=== PATIENT | female | born 1955 | race Caucasian/White ===

== ENCOUNTER 2020-10-13 14:53 | Outpatient (CLI) | payer OTHER, SELFPAY ==
--- NOTE | ~2020-10-13 | MM_ITS ---
EXAMINATION: MM screening ashley BI w kamilah HISTORY: Screening mammogram TECHNIQUE: Craniocaudal and mediolateral oblique 3-D tomosynthesis images were obtained and synthetic 2-D images were generated. CAD analysis was submitted and interpreted. COMPARISON: 06/18/2019, 06/08/2018, 02/15/2017 bilateral digital screening mammogram examinations BREAST PARENCHYMAL COMPOSITION: The breasts are almost entirely fatty. FINDINGS: There is no evidence of suspicious mass, calcification, or architectural distortion to sugg est malignancy in either breast. There has been no suspicious interval change. IMPRESSION: 1. No mammographic evidence of malignancy. 2. Recommend routine screening mammography in one year. BI-RADS Category 1: Negative Reviewed, dictated and finalized at location A. 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
== END 2020-10-13 14:54 | disposition home or self-care (01) ==
LOC: ANHIMG 14:55
PROVIDERS: PCP Family Medicine; Visit Provider Nurse Practitioner Obstetrics & Gynecology
DX: Z12.31 Encounter for screening mammogram for malignant neoplasm of breast (principal)
CPT/HCPCS: 77063; 77067

== ENCOUNTER → 2021-09-24 03:26 | Outpatient (CLI) | payer MEDICARE, SELFPAY ==
[2021-09-24 18:10] LABS: SARS-CoV-2 RNA PCR Negative
== END ==
PROVIDERS: PCP Family Medicine; Visit Provider Family Medicine
DX: R05.9 Cough, unspecified (principal); Z20.822 Contact with and (suspected) exposure to COVID-19
CPT/HCPCS: C9803; U0003; U0005

== ENCOUNTER 2021-11-18 15:47 | Outpatient (CLI) | payer MEDICARE, SELFPAY ==
--- NOTE | ~2021-11-18 | XR_ITS ---
EXAMINATION: XR lumbar spine min 4V EXAM DATE: 11/18/2021 16:14 INDICATION: M79.604 - Pain in right leg/Muscles, No Known Injury TECHNIQUE: Lumber spine frontal, lateral, bilateral oblique projections. Coned down frontal and lat eral L5-S1 lumbar projections for interpretation. There is no prior study for comparison. FINDINGS: No spondylolysis. There is moderate mid and lower lumbar facet arthropathy. Moderate disc d isease L4-5 and L5-S1, mild to moderate at the levels above. There are no acute fractures identified. Sacrum, sacroiliac joints, sacral arcuate lines are intact. The vertebral bodies are aligned in the AP dimension. IMPRESSION: 1. Moderate lumbar spondylosis. 2. No acute findings. Reviewed, dictated and finalized at location A. 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
== END 2021-11-18 15:48 | disposition home or self-care (01) ==
PROVIDERS: PCP Family Medicine; Visit Provider Family Medicine
DX: M79.604 Pain in right leg (principal); K58.9 Irritable bowel syndrome, unspecified; M47.816 Spondylosis without myelopathy or radiculopathy, lumbar region
CPT/HCPCS: 72110

== ENCOUNTER 2022-03-01 11:00 | Outpatient (RCR) | payer MEDICARE, SELFPAY ==
--- NOTE | 2021-12-24 16:57 | PTOPEVAL ---
Thank you for referring Apurva Prado to [facility].? The patient is scheduled to be seen for therapy?2 x/week for 8 weeks. Please review, sign, date and return this plan of care RAGHAV. I agree with and certify that the following plan of care is medically necessary. Referring Physician Date Attending Provider: Ree Wilkins MD Diagnosis right leg pain Onset 11/02 Cause unknown Additional Evaluation Detail She is retired. Hobbies: reading, music, photo books, gardening, local band Subjective Information She does not recall an injury Query Text:As Reported By Patient/ to her right leg. C/o pain of Family the right hip/knee and lower leg. She has increased pain on the left leg due to abnormal walking. Her left leg has been feeling weaker for some time. Denies any numbness or tingling into her leg or back pain. 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 Diagnostic Tests X-Rays For This Problem Yes: Moderate lumbar spondylosis. Pain Assessment Self Report Pain Assessment Right Leg(s) Reported Pain Level 3 Pain Description Aching,Sharp,Shooting Pain Frequency Acute Lowest Pain Intensity 0 Greatest Pain Intensity 9 Pain Aggravating Factors ADL's,Exercise/Activity,Stair Climbing,Walking,Weight Bearing/Standing Lower Extremity Range of Motion General Lower Extremity Range of Motion Reason Not Measured WFL/Left,WFL/Right Lower Extremity Muscle Strength Testing General Lower Extremity Strength Gross Lower Extremity Strength left hip flex: 4/5, ext: 5/5, abd: left knee flex/ext: 5/5 Hip Strength Right Hip Flexion Strength 4- Good - Hip Extension Strength 3 Fair Hip Abduction Strength 3- Fair - Knee Strength Right Knee Flexion Strength 4- Good - Knee Extension Strength 4+ Good + Ankle Strength Bilateral Ankle Dorsiflexion Strength 5 Normal Muscle Length Testing Muscle Length Testing Two-Joint Hip Flexor Shortened Muscles Short (R) Iliopsoas,Short (L) Iliopsoas,Short (R) Rectus Femoris,Short (L) Rectus F
--- NOTE | 2022-01-28 16:58 | PTOPEVAL ---
Physical Therapy Progress Note Thank you for referring Apurva Prado to [facility] [place].? See summary below for detail of Apurva's progress with therapy. She requires additional therapy services to reach her maximal functional level. The patient is scheduled to be seen for therapy?2 x/week for 4 weeks. Please review, sign, date and return this plan of care RAGHAV. I agree with and certify that the following plan of care is medically necessary. Referring Physician Date Attending Provider: Ree Wilkins MD Diagnosis right leg pain Onset 11/02 Cause unknown Additional Evaluation Detail She is retired. Hobbies: reading, music, photo books, gardening, local band Subjective Information Reports her leg feels better Query Text:As Reported By Patient/ since starting therapy. She Family has increased pain with prolonged walking and activities. She cont to have weakness of right LE. She is more aware of her right leg position with standing and walking. She is able to stand for 10 min interval then pain and fatigued. She remains limited on steps and unable to miller reciprocal pattern. Pain Assessment Right Leg(s) Reported Pain Level 1 Lowest Pain Intensity 0 Greatest Pain Intensity 5 Pain Aggravating Factors Exercise/Activity,Walking, Weight Bearing/Standing Lower Extremity Muscle Strength Testing Hip Strength Right Hip Flexion Strength 4 Good Hip Extension Strength 3+ Fair + Hip Abduction Strength 3- Fair - Knee Strength Right Knee Flexion Strength 4 Good Knee Extension Strength 5 Normal Muscle Length Testing Muscle Length Testing Two-Joint Hip Flexor Shortened Muscles Short (R) Iliopsoas,Short (L) Iliopsoas,Short (R) Rectus Femoris,Short (L) Rectus Femoris,Short (R) Ilial Tib Band,Short (L) Ilial Tib Band Piriformis w/Hip Neutral (L) Moderate Tightness,(R) Severe Tightness Right Prone Hip Internal Rotator Length 15 (degrees) Right Prone Hip External Rotator Length 25 (degrees) Right Hamstring Length -15:(90 - 90 Position) Right Prone Knee Flexor Muscle Length ( 90 degrees) Muscle Length Testing Comments pain with hip motions hip flex: 90 dg
--- NOTE | 2022-02-07 11:46 | PCPTNOTE ---
Patient called & cancelled scheduled appointment this date due to having a migraine and being unable to drive.
--- NOTE | 2022-03-01 11:52 | PCPTNOTE ---
Admitting Provider: Attending Provider: Ree Wilkins MD Patient:Apurva Prado Date of :1955 Physical Therapy Discharge Summary Patient has been seen for 18 therapy visits from 12/24/21 to 03/01/22 to address her leg pain. As a result of skilled therapy services she reports improved pain and function, improved LE strength, and improved joint motion. She is able to tolerate increased walking distance and improved technique on steps. She demonstrates indep with her HEP at this time. The goals have been partially met at this time. Thank you for referring this patient to [facility]. Please review, sign, date and return this discharge summary RAGHAV. I have been updated about the patient's current status and I agree with discharge from the above service at this time. Referring Physician Date
== END 2022-03-01 14:09 | disposition home or self-care (01) ==
LOC: ANHPT 11:00
PROVIDERS: PCP Family Medicine; Visit Provider Family Medicine
DX: M79.604 Pain in right leg (principal)
CPT/HCPCS: 97110; 97112; 97140; 97162; 97530

== ENCOUNTER 2022-06-14 16:57 | Outpatient (CLI) | payer MEDICARE, SELFPAY ==
--- NOTE | ~2022-06-14 | MM_ITS ---
EXAMINATION: MM screening ashley BI w kamilah HISTORY: Screening TECHNIQUE: Craniocaudal and mediolateral oblique 3-D tomosynthesis images were obtained and synthetic 2-D images were generated. CAD analysis was submitted and interpreted. COMPARISON: Comparison to multiple prior studies sequentially, with oldest reviewed study dated 08/13. BREAST PARENCHYMAL COMPOSITION: The breasts are almost entirely fatty. FINDINGS: There is no evidence of suspicious mass, calcification, or architectural distortion to sugg est malignancy in either breast. There has been no suspicious interval change. IMPRESSION: 1. No mammographic evidence of malignancy. 2. Recommend routine screening mammography in one year. BI-RADS Category 1: Negative Reviewed, dictated and finalized at location A.
--- NOTE | ~2022-06-14 | DEXA_ITS ---
Bone Density Report Name: PUMA WILSON Age: 67 Sex: Female Ethnicity: White Date of : 1955 Indication: postmenopausal; screening for osteoporosis; height loss; inflammatory bowel disease; hysterectomy; Referring Provider: LEONARDA, ORLANDO Crane Study: Bone densitometry was performed. Exam Date: June 14, 2022 Accession number: [id number] Bone Density: Region BMD T-score Z-score Classification AP Spine(L1-L4) 0.987 -0.5 1.3 Normal Femoral Neck (Left) 0.627 -2.0 -0.4 Osteopenia Total Hip (Left) 0.801 -1.2 0.1 Osteopenia Femoral Neck (Right) 0.753 -0.9 0.7 Normal Total Hip (Right) 0.851 -0.7 0.5 Normal Total Hip Mean 0.826 -1.0 0.3 Normal World Health Organization criteria for BMD impression classify patients as: Normal (T-score at or above -1.0), Osteopenia (T-score between -1.0 and -2.5), or Osteoporosis (T-score at or below -2.5). 10-year Fracture Risk(1): Major Osteoporotic Fracture 9.0% Hip Fracture 1.2% Reported Risk Factors: [place] (), Neck BMD=0.627, BMI=44.5 (1) FRAX(R) Version 3.08. Fracture probability calculated for an untreated patient. Fracture probability may be lower if the patient has received treatment. Clinical Information Provided by Patient: Has used the following medications: Vitamin D, Calcium Has the following medical conditions: Inflammatory bowel diseases, Hysterectomy Patient maximum height was 65 Menopause Age: 49 Drinks caffeinated beverages Onset of menses at age 11 Number of children 0 Impression: The patient has low bone mass, based on the Left Femoral Neck T-score. The patient has an estimated ten-year risk of hip fracture of 1.2% and an estimated ten-year risk of major fracture of 9%, based on the WHO FRAX algorithm. Discussion: BONE DENSITY IS LOW AT ONE OR MORE SKELETAL SITES. This patient's lowest T-score is low at one or more skeletal sites. It meets the World Health Organization's (WHO) criteria for ?low bone mass? (T-score between -1.0 and -2.5). The patient's 10-year risk of fracture as calculated by FRAX is less than the threshold where pharmacological therapy is recommended by the National Osteoporosis Foundation (NOF). However, all treatment decisions require clinical judgment and consideration of individual patient factors, including patient preferences, comorbidities, previous drug use, risk factors not captured in the FRAX model (e.g., frailty, falls, vitamin D deficiency, increased bone turnover, interval significant decline in bone density) and possible under or overestimation of fracture risk by FRAX. The patient should follow a healthful lifestyle (good nutrition with adequate calcium and vitamin D, and appropriate weight-bearing exercise). Follow-Up: Consider repeating this study in 2 to 3 years to
== END 2022-06-14 16:58 | disposition home or self-care (01) ==
LOC: ANHIMG 16:58
PROVIDERS: PCP Family Medicine; Visit Provider Nurse Practitioner Obstetrics & Gynecology
DX: Z12.31 Encounter for screening mammogram for malignant neoplasm of breast (principal); Z78.0 Asymptomatic menopausal state; M85.852 Other specified disorders of bone density and structure, left thigh
CPT/HCPCS: 77063; 77067; 77080

== ENCOUNTER 2023-09-06 15:03 | Outpatient (CLI) | payer MEDICARE, SELFPAY ==
--- NOTE | ~2023-09-06 | MM_ITS ---
EXAMINATION: MM screening ashley BI w kamilah HISTORY: Screening mammogram TECHNIQUE: Craniocaudal and mediolateral oblique 3-D tomosynthesis images were obtained and synthetic 2-D images were generated. CAD analysis was submitted and interpreted. COMPARISON: 06/14/2022, 10/13/2020 bilateral screening mammogram examinations BREAST PARENCHYMAL COMPOSITION: The breasts are almost entirely fatty. FINDINGS: There is no evidence of suspicious mass, calcification, or architectural distortion to sugg est malignancy in either breast. There has been no suspicious interval change. IMPRESSION: 1. No mammographic evidence of malignancy. 2. Recommend routine screening mammography in one year. BI-RADS Category 1: Negative Reviewed, dictated and finalized at location A.
== END 2023-09-06 15:04 | disposition home or self-care (01) ==
LOC: ANHIMG 15:04
PROVIDERS: PCP Family Medicine; Visit Provider Nurse Practitioner Obstetrics & Gynecology
DX: Z12.31 Encounter for screening mammogram for malignant neoplasm of breast (principal)
CPT/HCPCS: 77063; 77067

== ENCOUNTER 2024-07-31 15:30 | Outpatient (CLI) | payer MEDICARE, SELFPAY ==
--- NOTE | ~2024-07-31 | XR_ITS ---
XR humerus RT Ordering provider: RODRIGO Manley History: . M79.601 - Pain in right arm . Comparison: None. FINDINGS: BONES: No definite acute fracture or dislocation. Small bony fragment seen near to the humeral head w hich may be a fracture or loose body in the joint space or ossification in the tendon. JOINT SPACES: Normal. SOFT TISSUES: Normal. IMPRESSION: Small bony fragment seen in the area of the glenohumeral joint may be a chip fracture versus loose tiburcio dy in the joint versus tendinous ossification. CT evaluation and clinical correlation advised. Reviewed, dictated and finalized at location A. IMPRESSION: Small bony fragment seen in the area of the glenohumeral joint may be a chip fr acture versus loose body in the joint versus tendinous ossification. CT evaluat ion and clinical correlation advised.
== END 2024-07-31 15:31 | disposition home or self-care (01) ==
PROVIDERS: PCP Family Medicine; Visit Provider Nurse Practitioner Family
DX: M79.601 Pain in right arm (principal)
CPT/HCPCS: 73060

== ENCOUNTER 2024-08-08 12:19 | Outpatient (CLI) | payer MEDICARE, SELFPAY ==
--- NOTE | ~2024-08-08 | XR_ITS ---
XR shoulder RT min 2V 08/08/2024 12:27 Indication: Right shoulder pain after recent fall Procedure: 4 views right shoulder Comparison: No prior studies for comparison. Findings: There is a probable fracture inferior margin of the glenoid process. There is mild osteoart hritis of the acromioclavicular joint. Osteopenia. There is right basilar atelectasis. Impression: 1: Probable fracture inferior margin of the glenoid process. Consider correlation with CT. Reviewed, dictated and finalized at location B. Impression: 1: Probable fracture inferior margin of the glenoid process. Consider correlati on with CT.
== END 2024-08-08 12:20 | disposition home or self-care (01) ==
PROVIDERS: PCP Family Medicine; Visit Provider Family Medicine
DX: M25.511 Pain in right shoulder (principal)
CPT/HCPCS: 73030

== ENCOUNTER 2024-08-15 15:10 | Outpatient (CLI) | payer MEDICARE, SELFPAY ==
--- NOTE | ~2024-08-15 | CT_ITS ---
EXAMINATION: CT shoulder RT wo con DATE: 08/15/2024 15:30 INDICATION: Right shoulder pain. TECHNIQUE: Computed tomography (CT) of the right shoulder was performed without intravenous contrast. Automated exposure control and iterative reconstruction technique were employed. The dose-length pro duct was 395.86 mGy-cm. COMPARISON: Right shoulder radiographs 04/07/2024 FINDINGS: Alignment is normal. There is a comminuted fracture of anteroinferior glenoid with up to 4 mm fracture gap and 2 mm offset at the articular surface There is a benign bone island in right acrom ion. There is mild osteoarthritis of glenohumeral joint and severe osteoarthritis of acromioclavicula r joint. There is a glenohumeral joint effusion. IMPRESSION: 1. Comminuted fracture of anteroinferior glenoid. 2. Polyarticular osteoarthritis. Reviewed, dictated and finalized at location A.
== END 2024-08-15 15:11 | disposition home or self-care (01) ==
LOC: GOSHIMG 15:11
PROVIDERS: PCP Family Medicine; Visit Provider Nurse Practitioner Family
DX: R93.89 Abnormal findings on diagnostic imaging of other specified body structures (principal); S42.141A Displaced fracture of glenoid cavity of scapula, right shoulder, initial encounter for closed fracture; M19.011 Primary osteoarthritis, right shoulder; X58.XXXA Exposure to other specified factors, initial encounter
CPT/HCPCS: 73200

== ENCOUNTER 2024-08-26 13:46 | Outpatient (CLI) | payer MEDICARE, SELFPAY ==
--- NOTE | ~2024-08-26 | CT_ITS ---
EXAMINATION:CT diagnostic chest wo con DATE: 08/26/2024 14:04 INDICATION: Atelectasis. TECHNIQUE: Computed tomography (CT) of the chest was performed without intravenous contrast. Automate d exposure control and iterative reconstruction technique were employed. The dose-length product (DLP ) was 687.19 mGy-cm. COMPARISON: None. FINDINGS: The lungs demonstrate mild atelectasis. Calcified pulmonary nodules and calcified hilar and mediastinal lymph nodes are consistent with old granulomatous disease. There are centrilobular nodul es in lateral segment right middle lobe, consistent with mild pneumonia. There is mild bronchiectasis in the inferior lungs. No pleural effusion. The heart size is normal. There are coronary artery calc ifications. No pericardial effusion. There is a small sliding hiatal hernia. There is mild thoracic s pondylosis. IMPRESSION: 1. Mild pneumonia in lateral segment right middle lobe. Reviewed, dictated and finalized at location A.
== END 2024-08-26 13:47 | disposition home or self-care (01) ==
LOC: GOSHIMG 13:46
PROVIDERS: PCP Family Medicine; Visit Provider Family Medicine
DX: J98.11 Atelectasis (principal); J18.9 Pneumonia, unspecified organism
CPT/HCPCS: 71250

== ENCOUNTER 2024-09-30 14:36 | Outpatient (CLI) | payer MEDICARE, SELFPAY ==
--- NOTE | ~2024-09-30 | XR_ITS ---
CHEST RADIOGRAPH, PA AND LATERAL CLINICAL HISTORY: J18.9 - Pneumonia, unspecified organism . COMPARISON: Reference is made to the CT examination of the chest dated 08/26/2024 TECHNIQUE: PA and lateral views of the chest. FINDINGS The cardiomediastinal silhouette is unremarkable. The lungs are clear. Visualized osseous structures and soft tissues are unremarkable. IMPRESSION: No focal infiltrate or effusion. Reviewed, dictated and finalized at location A. 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
== END 2024-09-30 14:37 | disposition home or self-care (01) ==
LOC: GOSHIMG 14:37
PROVIDERS: PCP Family Medicine; Visit Provider Family Medicine
DX: J18.9 Pneumonia, unspecified organism (principal)
CPT/HCPCS: 71046

== ENCOUNTER 2025-04-11 13:49 | Outpatient (CLI) | payer MEDICARE, SELFPAY ==
--- NOTE | ~2025-04-11 | DEXA_ITS ---
Bone Density Report Name: PUMA WILSON Age: 69 Sex: Female Ethnicity: White Date of : 1955 Indication: osteopenia; parental hip fracture; height loss; hysterectomy; Referring Provider: LEONARDA, ORLANDO Crane Study: Bone densitometry was performed. Exam Date: April 11, 2025 Accession number: [id number] Bone Density: Region BMD T-score Z-score Classification AP Spine(L1-L4) 0.930 -1.1 1.0 Osteopenia Femoral Neck (Left) 0.631 -2.0 -0.2 Osteopenia Total Hip (Left) 0.886 -0.5 1.0 Normal Femoral Neck (Right) 0.801 -0.4 1.3 Normal Total Hip (Right) 0.877 -0.5 0.9 Normal Total Hip Mean 0.881 -0.5 1.0 Normal World Health Organization criteria for BMD impression classify patients as: Normal (T-score at or above -1.0), Osteopenia (T-score between -1.0 and -2.5), or Osteoporosis (T-score at or below -2.5). 10-year Fracture Risk(1): Major Osteoporotic Fracture 16% Hip Fracture 2.7% Reported Risk Factors: [place] (), Neck BMD=0.631, BMI=44.5, parental fracture (1) FRAX(R) Version 3.08. Fracture probability calculated for an untreated patient. Fracture probability may be lower if the patient has received treatment. Previous Exams: Region Exam Age BMD T-score BMD Change BMD Change Date g/cm2 vs Baseline vs Previous AP Spine (L1-L4) 04/11/2025 69 0.930 -1.1 -0.057 (-5.8%) -0.057 (-5.8%) 06/14/2022 67 0.987 -0.5 Total Hip(Left) 04/11/2025 69 0.886 -0.5 0.085 (10.6%)# 0.085 (10.6%)# 06/14/2022 67 0.801 -1.2 Total Hip(Right) 04/11/2025 69 0.877 -0.5 0.026 (3.1%)# 0.026 (3.1%)# 06/14/2022 67 0.851 -0.7 *Denotes significance at 95% confidence level, LSC for AP Spine = 0.022 g/cm2, LSC for Total Hip = 0.027 g/cm2 # Denotes dissimilar scan types or analysis methods Clinical Information Provided by Patient: Parent has had a hip fracture Has used the following medications: Vitamin D, Calcium Has the following medical conditions: Hysterectomy Patient maximum height was 66 Menopause Age: 49 Does not regularly consume dairy products Drinks caffeinated beverages Onset of menses at age 11 Number of children 0 Impression: The patient has low bone mass, based on the Left Femoral Neck T-score. The patient has an estimated ten-year risk of hip fracture of 2.7% and an estimated ten-year risk of major fracture of 16%, based on the WHO FRAX algorithm. The patient has risk factors, including: parental hip fracture. No significant bone loss was observed. Discussion: BONE DENSITY IS LOW AT ONE OR MORE SKELETAL SITES. This patient's lowest T-score is low at one or more skeletal sites. It meets the World Health Organization's (WHO) criteria for ?low bone mass? (T-score between -1.0 and -2.5). The patient's 10-year risk of fracture as calculated by FRAX is less than the threshold where pharmacological therapy is recommended by the National Osteoporosis Foundation (NOF). However, all treatment decisions require clinical judgment and consideration of individual patient factors, including patient preferences, comorbidities, previous drug use, risk factors not captured in the FRAX model (e.g., frailty, falls, vitamin D deficiency, increased bone turnover, interval significant decline in bone density) and possible under or overestimation of fracture risk by FRAX. The patient should follow a healthful lifestyle (good nutrition with adequate calcium and vitamin D, and appropriate weight-bearing exercise). Follow-Up: Consider repeating this study in 2 to 3 years to reassess this patient's status, or sooner if there is some new clinical indication. Reported by: ANGI on 04/11/2025 2:32:00 PM. Reviewed, dictated and finalized at location A.
--- NOTE | ~2025-04-11 | MM_ITS ---
EXAMINATION: MM screening ashley BI w kamilah HISTORY: Screening TECHNIQUE: Craniocaudal and mediolateral oblique 3-D tomosynthesis images were obtained and synthetic 2-D images were generated. CAD analysis was submitted and interpreted. COMPARISON: Comparison to multiple prior studies sequentially, with oldest reviewed study dated 06/08. BREAST PARENCHYMAL COMPOSITION: Not Dense: The breasts are almost entirely fatty. FINDINGS: There is no evidence of suspicious mass, calcification, or architectural distortion to sugg est malignancy in either breast. There has been no suspicious interval change. IMPRESSION: 1. No mammographic evidence of malignancy. 2. Recommend routine screening mammography in one year. BI-RADS Category 1: Negative Reviewed, dictated and finalized at location A.
--- OUTSIDE RECORDS SUMMARY | 2025-04-11 13:53 | XMS_ITS | Data Portability ---
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 Patient will come back in a year unless there are new symptoms. [email or web address] Not available 08/11/2020 10:35:32 09/09/2021 09/09/2021 Annual gynecological exam performed. Patient will come back in a year unless there are new symptoms. Not available 09/07/2021 13:47:39 02/14/2023 02/14/2023 Annual gynecological exam performed. Patient will come back in a year unless there are new symptoms. [email or web address] Not available 02/14/2023 16:11:51 03/26/2024 03/26/2024 Annual gynecological exam performed. Patient will come back in a year unless there are new symptoms. [email or web address] Not available 03/26/2024 14:59:18 Plan of Treatment Reminders Order Date Submit Date Provider Last Modified By Organization Details Last Modified Time Details Appointments None recorded. Lab None recorded. Referral None recorded. Procedures None recorded. Surgeries None recorded. Imaging MAMMO, screening, bilateral [address] [facility], [address], [address], [place], [address], 4 08:55:10 DEXA, axial skeleton + vertebral fracture assessment [address] [facility], [address], [address], [place], [address], 4 08:55:10 MAMMO, screening, bilateral [address] [facility], [address], [address], [place], [address], 3 15:55:03 DEXA, axial skeleton + vertebral fracture assessment 2020 021 [facility], [address], [place], [address], 2 11:46:10 Medication Orders nystatin-tr iamcinolone 100,000 unit/gram-0 .1 % topical ointment 2023 024 [id number], [address] [place], [address], 4 15:33:47 Patient TargetsNo targets recorded. Patient InstructionsNo instructions recorded. Reason for Referral None Reported. Results Created Date Observation Date Name Description Value Unit Range Abnormal Flag Note LastModifiedBy Organization Detail LastModifiedTime 10/15/20 20 MAMMO , scree ondina, bilat eral No observ ation record ed. [email or web address] Not Available 2019 16:34:25 06/15/20 22 06/14/2022 MAMMO , scree ondina, bilat eral No observ ation record ed. [facility] [address], [place], [address], 06/24/2022 12:19:45 06/23/20 22 DEXA, axial skele ton + verte bral fract ure asses sment No observ ation record ed. [facility] [address], [place], [address], 06/28/2022 14:07:37 Result Notes None recorded. Problems Name Problem SNOMED Code Status Onset Date Resolution Date Notes Provider Name and Address Organization Details Recorded Time Speciali zed medical examinat ion Completed 201309/07/2021 Gynecolog ical Examinati on;Record ed Elsewhere : No Locati on: [facility] So urce: EHR Chron ic: N Practic e ID: 0001 Bill able Time: 08:30:00 AM Dianna Pena [facility] 13:40:[address] Concept Completed 201409/07/2021 Encntr for general adult medical exam w/o abnormal findings; Recorded Elsewhere : No Locati on: [facility] So urce: EHR Chron ic: N Practic e ID: 0001 Bill able Time: 11:30:00 AM Dianna Pena [facility] 13:40:02 Evaluati on finding Completed 201609/07/2021 Hematuria , unspecifi ed;Record ed Elsewhere : No Locati on: [facility] So urce: EHR Chron ic: N Practic e ID: 0001 Bill able Time: 04:30:00 PM Dianna Pena [facility] 13:39:51 Microsco pic hematuri a [id number] Completed 201009/07/2021 HEMATURIA MICROSCOP IC;Practi ce ID: [id number] Dianna Pena [facility] 13:39:54 Screenin g for malignan t neoplasm of cervix Completed 201009/07/2021 Pap Smear;Pra ctice ID: 0001 Dianna Pena [facility] 13:39:57 Screenin g for malignan t neoplasm of colon Completed 201009/07/2021 Special screening for malignant neoplasms , colon;Pra ctice ID: [id number] Dianna Pena [facility] 13:39:58 Obesity [id number] Completed 201109/07/2021 Obesity, unspecifi ed;Practi ce ID: [id number] Dianna walker [facility] 13:39:55 Adult health examinat ion Completed 201109/07/2021 Routine general medical examinati on at a health care facility; Practice ID: 0001 Dianna Pena [facility] 13:39:46 Screenin g for malignan t neoplasm of rectum Completed 201109/07/2021 Screening for malignant neoplasms of the rectum;Pr actice ID: 0001 Dianna Pena [facility] 13:40:00 Bone density finding [id number] Completed 201709/07/2021 Oth disrd of bone density and structure , multiple sites;Rec orded Elsewhere : No Locati on: [facility] So urce: EHR Chron ic: N Practic e ID: 0001 Bill able Time: 11:13:36 AM Dianna Pena [facility] 13:39:49 Body mass index 30+ - obesity [id number] Completed 201409/07/2021 Body mass index (BMI) 38.0-38.9 , adult;Rec orded Elsewhere : No Locati on: [facility] So urce: EHR Chron ic: N Practic e ID: 0001 Bill able Time: 11:30:00 AM Dianna Pena [facility] 13:39:[address] Concept Completed 201809/07/2021 Encntr for vacuum pan tender exam (general) (routine) w/o abn findings; Recorded Elsewhere : No Locati on: [facility] So urce: EHR Chron ic: N Practic e ID: 0001 Bill able Time: 01:30:00 PM Dianna walker [facility] 13:40:03 Finding of body mass index [id number] Completed 201709/07/2021 Body mass index (BMI) 40.0-44.9 , adult;Rec orded Elsewhere : No Locati on: [facility] So urce: EHR Chron ic: N Practic e ID: 0001 Bill able Time: 11:00:00 AM [facility] 13:39:52 Problem Notes None recorded. Procedures Surgical History Date Name Laterality Status Provider Name and Address Organization Details Recorded Time 11/13/19 23 Date of Last Mammogram completed Nina Mccarty [facility] 03/26/2024 15:01:28 06/23/20 22 Most Recent Bone Density completed [facility] 02/14/2023 16:13:59 08/22/20 19 Date of Last Colonoscopy completed [facility] 09/09/2021 15:01:42 07/22/20 19 completed [facility] 09/09/2021 15:01:42 05/01/20 19 Date of Last Pap Smear completed [facility] 02/14/2023 16:13:38 06/14/20 18 completed [facility] 09/09/2021 15:04:18 11/13/19 09 excision of varicose vein completed [facility] 09/07/2021 13:46:23 11/13/19 06 Colonoscopy completed [facility] 09/07/2021 13:45:47 11/13/19 04 Total Hysterectomy completed [facility] 09/07/2021 13:46:46 11/13/18 97 Myomectomy completed [facility] 09/07/2021 13:46:08 Myomectomy completed [facility] 09/09/2021 15:01:49 Colonoscopy completed Juliana Keyes, [facility]- [address], [place], [address], [facility] 02/14/2023 16:17:53 Total Hysterectomy completed Dianna Pena [facility] 09/09/2021 15:01:49 Imaging Results None recorded. Procedure Notes None recorded. Medical Equipment None Reported. Allergies Allergen ID Allergen Name Allergen Category Reaction Reaction Severity Criticality Documentation Date Start Date Code Code System Note Provider Name and Address Organization Details Recorded Time 2186 doxycycli ne Not available Not available Not available Not available 08/10/2020 3640 RxNorm Helena walker, [facility] 0 17:36:49 2187 erythromy panda medicatio n Not available Not available Not available 08/10/2020 4053 RxNorm Helena Hagen aaron, [facility] 0 17:36:55 2188 Product containin g penicilli n (product) medicatio n Not available Not available Not available 08/10/2020 88354 8001 SNOMED Helena walker, [facility] 0 17:37:04 Medications Name Sig Start Date Stop Date Status Note LastModified by Organization Details LastModified Time Vitamin C 500 mg tablet 09/09 completed Prescrib ed Elsewher e: Yes Loca tion: [facility] odify By: jacobo Gonzales ncounter DateTime : 04/19/20 18 11:00:00 AM Not Available Not Available Not Available vitamin E 100 unit capsule 2017 active Prescrib ed Elsewher e: Yes Loca tion: [facility] odify By: jacobo Gonzales ncounter DateTime : 04/19/20 18 11:00:00 AM Not Available Not Available Not Available Flonase 50 mcg/actua tion nasal spray,janny pension spray 1 spray by intranas al route every day in each nostril 2011 active Prescrib ed Elsewher e: No Locat ion: [facility] odify By: chan Farahte r DateTime : 07/10/20 12 05:21:41 AM Not Available Not Available Not Available Zyrtec 10 mg tablet take 1 tablet by oral route every day 07/22 completed Prescrib ed Elsewher e: Yes Loca tion: [facility] odify By: ze conklin DateTime : 07/10/20 12 05:21:41 AM Not Available Not Available Not Available sulfameth oxazole 800 mg-trimet hoprim 160 mg tablet 09/07 completed Not Available Not Available Not Available nystatin- triamcino lone 100,000 unit/gram -0.1 % topical ointment APPLY TO THE AFFECTED AREA(S) BY TOPICAL ROUTE 2 TIMES PER DAY PRN 2024 active Not Available Not Available Not Avai lable FiberCon 625 mg tablet active Prescrib ed Elsewher e: Yes Loca tion: [facility] odify By: chan Vega r DateTime : 07/10/20 12 05:21:41 AM Not Available Not Available Not Available lutein 6 mg capsule 03/26 completed Prescrib ed Elsewher e: Yes Loca tion: [facility] odify By: jacobo conklin DateTime : 05/01/20 19 01:30:00 PM Not Available Not Available Not Available lisinopri l 10 mg tablet TAKE 1 TABLET BY MOUTH EVERY DAY active Not Available Not Available No t Available Claritin- D 12 Hour 5 mg-120 mg tablet,ex tended release take 1 tablet by oral route every 12 hours 01/10 completed Prescrib ed Elsewher e: Yes Loca tion: [facility] odify By: jacobo conklin DateTime : 08/07/20 14 08:30:00 AM Not Available Not Available Not Available grape seed extract 50 mg capsule 2017 active Prescrib ed Elsewher e: Yes Loca tion: [facility] odify By: jacobo conklin DateTime : 04/19/20 18 11:00:00 AM Not Available Not Available Not Available Acidophil us capsule 2016 active Prescrib ed Elsewher e: Yes Loca tion: [facility] odify By: jacobo conklin DateTime : 01/10/20 17 04:30:00 PM Not Available Not Available Not Available Calcium 500 + D 500 mg-5 mcg (200 unit) tablet 2016 active Prescrib ed Elsewher e: Yes [facility] odify By: jacobo firasunttish DateTime : 01/10/20 17 04:30:00 PM Not Available Not Available Not Available nitrofura ntoin monohydra te/macroc rystals 100 mg capsule 09/09 completed Not Available Not Available Not Available Clarinex- D 24 HOUR 5 mg-240 mg tablet,ex tended release take 1 tablet by oral route every day 08/07 completed Prescrib ed Elsewher e: No [facility]at [facility]: [facility] odify By: jacobo friasunttish DateTime : 07/22/20 13 08:30:00 AM Not Available Not Available Not Available Vitamin C 09/09 completed Not Available Not Available Not Available vitamin E 09/09 completed Not Available Not Available Not Available Acidophil us 09/09 completed Not Available Not Available Not Available [place]-3 09/09 completed Not Available Not Available Not Available FiberCon 09/09 completed Not Available Not Available Not Available grape seed extract 09/09 completed Not Available Not Available Not Available lutein 2023 active Not Available Not Available Not Avai lable Calcium 500 + D 09/09 completed Not Available Not Available Not Available hydrochlo rothiazid e 12.5 mg tablet 12.5 MG ORALLY DAILY active Not Available Not Available No t Available glucosami ne-chondr oitin 900 mg tablet 2017 active Prescrib ed Elsewher e: Yes [facility] odify By: jacobo friasunttish DateTime : 04/19/20 18 11:00:00 AM Not Available Not Available Not Available Faiza Allergy 60 mg tablet take 1 tablet by oral route 2 times every day 2016 active Prescrib ed Elsewher e: Yes Loca tion: [facility] odify By: jacobo conklin DateTime : 01/10/20 17 04:30:00 PM Not Available Not Available Not Available Faiza Allergy 09/09 completed Not Available Not Available Not Available glucosami ne-condro itin-herb 182 09/09 completed Not Available Not Available Not Available pine oil (bulk) 100 % 09/09 completed Not Available Not Available Not Available pine oil (bulk) active Not Available Not Available Not Available Multi Vitamin 9 mg iron/15 mL oral liquid 2016 active Prescrib ed Elsewher e: Yes [facility] odify By: jacobo conklin DateTime : 01/10/20 17 04:30:00 PM Not Available Not Available Not Available Multi Vitamin 09/09 completed Not Available Not Available Not Available Flonase Allergy Relief 09/09 completed Not Available Not Available Not Available [place]-3 350 mg-235 mg-90 mg-597 mg capsule,d elayed release 2016 active Prescrib ed Elsewher e: Yes [facility] By: jacobo conklin DateTime : 01/10/20 17 04:30:00 PM Not Available Not Available Not Available Flowflex COVID-19 Antigen Home Test kit USE DIRECTED 03/26 completed Not Available Not Available Not Available Vitals Date Recorded Body weight Systolic blood pressure Diastolic blood pressure Provider Name and Address Organization Details Last Updated DateTime 02/14/2023 825097.66 g 135 mm[Hg] 80 mm[Hg] Dianna Gill [facility] 02/14/2023 16:12:08 Date Recorded Body height Body mass index (BMI) Body weight Systolic blood pressure Diastolic blood pressure Provider Name and Address Organization Details Last Updated DateTime 03/26/2024 163.2 cm 46.7 kg/m2 423545.3 1 g 132 mm[Hg] 76 mm[Hg] Nina Mccarty [facility] 05/14/202 4 14:59:52 Date Recorded Body height Body mass index (BMI) Body weight Systolic blood pressure Diastolic blood pressure Provider Name and Address Organization Details Last Updated DateTime 08/11/2020 165.1 cm 45.3 kg/m2 498327.1 2 g 156 mm[Hg] 95 mm[Hg] Helena Hagen [facility] 0 10:44:30 Date Recorded Systolic blood pressure Diastolic blood pressure Provider Name and Address Organization Details Last Updated DateTime 09/09/2021 132 mm[Hg] 81 mm[Hg] Juliana Keyes, [facility]- [address], [place], [address], [facility] 09/09/2021 15:09:43 Date Recorded Body height Body mass index (BMI) Body weight Provider Name and Address Organization Details Last Updated DateTime 09/09/2021 163.2 cm 46.5 kg/m2 443020.72 g Dianna Pena [facility] 09/09/2021 15:01:08 Social History Question Answer Notes LastModified by Organizat ion Details LastModified Time Tobacco Smoking Status Never Smoker Cecily walker, [facility] 02/14/2023 16:05:54 Do You Have An Advance Directive? Yes Information n ot available 09/09/2021 How Many Years Have You Consumed Alcohol? 50 Information not available 09/09/2021 Are You Blind Or Do You Have Difficulty Seeing? No Information n ot available 09/07/2021 What Is Your Level Of Caffeine Consumption? Moderate Information not available 09/09/2021 How Much Tobacco Do You Chew? None Information not available 09/09/2021 In The 14 Days Before Symptom Onset, Have You Had Close Contact With A Laboratory-confirm ed COVID-19 While That Case Was Ill? No Information n ot available 09/09/2021 In The 14 Days Before Symptom Onset, Have You Had Close Contact With A Person Who Is Under Investigation For COVID-19 While That Person Was Ill? No Information not available 09/09/2021 Have You Been To An Area Known To Be High Risk For COVID-19? No Information not available 09/09/2021 Are You Deaf Or Do You Have Serious Difficulty Hearing? No Information not available 09/07/2021 What Type Of Diet Are You Following? REGULAR Information n ot available 09/07/2021 What Is The Highest Grade Or Level Of School You Have Completed Or The Highest Degree You Have Received? [id number] Information not available 09/09/2021 Are There Any Guns Present In Your Home? No Information not available 09/09/2021 Do You Use Protection During Sex? No Information not available 09/09/2021 Do You Use Your Seat Belt Or Car Seat Routinely? Yes Information not available 09/07/2021 Do You Have Smoke And Carbon Monoxide Detectors In Your Home? Yes Information not available 09/07/2021 How Much Tobacco Do You Smoke? No Information not available 09/09/2021 Do You Use Sunscreen Routinely? Yes Information not available 09/07/2021 Have You Used IV Drugs? No Information not available 09/09/2021 Sex: Unknown Functional Status Question Answer Note LastModified by Organizat ion Details LastModified Time Do you use any illicit or recreational drugs? No Information not available 09/07/2021 What is your level of alcohol consumption? Occasional Information not available 09/07/2021 Are you able to walk? 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 Occasional Information not available 09/07/2021 Mental Status Question Answer Note LastModified by Organization D etails LastModified Time Do you feel stressed (tense, restless, nervous, or anxious, or unable to sleep at night)? [id number] Information not available 09/09/2021 Family History Relationship Description Onset Age of this Age Resolved Age Notes LastModified by Organization Details LastModified Time Father Diabetes mellitus [email or web address] Not available 2019 17:39:34 Father Hypertensive disorder [email or web address] Not available 2019 17:39:59 Father Heart disease [email or web address] Not available 2019 17:40:12 Paternal Grandmother Hypertensive disorder [email or web address] Not available 2019 17:39:59 Mother Hypertensive disorder [email or web address] Not available 2019 17:39:59 Mother Carcinoma in situ of liver [email or web address] Not available 2023 14:49:27 Maternal Grandmother Hypertensive disorder [email or web address] Not available 2019 17:39:59 Maternal Grandmother Carcinoma in situ of uterus [email or web address] Not available 2023 14:49:27 Maternal Grandmother Carcinoma in situ of liver [email or web address] Not available 2023 14:49:27 Medical History Condition Response Other Y Infertility Y GI Problems Y Gynecological History Statement/Question Response Abnormal Pap N Date of Last Mammogram 11/13/2022 N HPV Vaccine N 06/14/2018 Current Control Method Hysterectom y 10 Date of Last Colonoscopy 08/22/2019 Most Recent Bone Density 06/23/2022 Sexually Active? Y Age of first menstrual cycle 11 Date of Last Pap Smear 05/01/2019 Sexual Problems? N LMP Unknown 07/22/2019 N Obstetrics History GPAL:G 1 P 0 0 1 0 Type Value Spontaneous 1 Living 0 Total 1 Past Encounters Encounter ID Performer Location Encounter Start Date Encounter Closed Date Diagnosis/Indication Diagnosis SNOMED-CT Code Diagnosis ICD10 Code Diagnosis Note [id number] [facility] [address] [address] 08/11/2020 10:32:19 08/11/2020 11:33:23 Gynecologic examination 10289050 Z01.419 Take Calcium with Vitamin D 12-1500mg daily. Do monthly self breast exams. It is advised to get annual flu shot in the fall and she could obtain at [facility] or [facility] clinic. If you haven't received the Tdap vaccine in the last 10 years you should obtain one as well. Have mammogram yearly, bone density every 2-3 years and colonoscop y every 5-10 years depending on findings and history. Engage in daily exercise of low impact aerobic exercise 45-60 minutes 4-5 times weekly. Avoid tobacco and illicit drugs as well as using moderation with alcohol intake less than 1-2 8 oz beverages daily. This lifestyle behavior pattern will lead to less health conditions and longer life span. If BMI greater than 25 weight watchers or dietary consult advised. Questions have been answered. Patient appears to understand instructio ns, but if you have any further questions call or respond to this email [facility] for non-cancer indication s. Will contact PCP regarding BP. Same partner x >20[place] [id number] Juliana Keyes [facility] [address] [address] 09/09/2021 14:30:54 09/09/2021 15:29:52 Gynecologic examination 47520599 Z01.419 Take Calcium with Vitamin D 12-1500mg daily. Do monthly self breast exams. It is advised to get annual flu shot in the fall and she could obtain at [facility] or [facility]. If you haven't received the Tdap vaccine in the last 10 years you should obtain one as well. Have mammogram yearly, bone density every 2-3 years and colonoscop y every 5-10 years depending on findings and history. Engage in daily exercise of low impact aerobic exercise 45-60 minutes 4-5 times weekly. Avoid tobacco and illicit drugs as well as using moderation with alcohol intake less than 1-2 8 oz beverages daily. This lifestyle behavior pattern will lead to less health conditions and longer life span. If BMI greater than 25 weight watchers or dietary consult advised. Questions have been answered. Patient appears to understand instructio ns, but if you have any further questions call or respond to this email [facility] for non-cancer indication s. Same partner x >20yrs Neg pap hxDeclines std screenColo n-managed by PCPMammo orderedDex a ordered Postmenopa usal osteopenia 210380928 M85.80 [id number] Juliana Keyes [facility] [address] [address] 02/14/2023 16:05:40 02/14/2023 16:26:39 Gynecologic examination 32222455 Z01.419 Take Calcium with Vitamin D 12-1500mg daily. Do monthly self breast exams. It is advised to get annual flu shot in the fall and she could obtain at [facility] or [facility]. If you haven't received the Tdap vaccine in the last 10 years you should obtain one as well. Have mammogram yearly, bone density every 2-3 years and colonoscop y every 5-10 years depending on findings and history. Engage in daily exercise of low impact aerobic exercise 45-60 minutes 4-5 times weekly. Avoid tobacco and illicit drugs as well as using moderation with alcohol intake less than 1-2 8 oz beverages daily. This lifestyle behavior pattern will lead to less health conditions and longer life span. If BMI greater than 25 weight watchers or dietary consult advised. Questions have been answered. Patient appears to understand instructio ns, but if you have any further questions call or respond to this email Pap/hpv USPSTF recommends against screening for cervical cancer in women older than 65yo, those who've had a hysterecto my for non-cancer indication s, & who have had adequate prior screening & are not otherwise at high risk for cervical cancer. STD Screen declinedGe netic Screen discussedC olon Screen UTD PCPDexa Screen UTD due outin e Labs UTD PCPMammo Ordered Screening mammography 24 222334 Z12.31 [id number] Juliana Keyes , [facility] [address] [address] 03/26/2024 14:47:45 03/26/2024 15:36:06 Gynecologic examination [id number] Z01.419 Take Calcium with Vitamin D 12-1500mg daily. Do monthly self breast exams. It is advised to get annual flu shot in the fall and she could obtain at [facility] or [facility] care clinic. If you haven't received the Tdap vaccine in the last 10 years you should obtain one as well. Have mammogram yearly, bone density every 2-3 years and colonoscop y every 5-10 years depending on findings and history. Engage in daily exercise of low impact aerobic exercise 45-60 minutes 4-5 times weekly. Avoid tobacco and illicit drugs as well as using moderation with alcohol intake less than 1-2 8 oz beverages daily. This lifestyle behavior pattern will lead to less health conditions and longer life span. If BMI greater than 25 weight watchers or dietary consult advised. Questions have been answered. Patient appears to understand instructio ns, but if you have any further questions call or respond to this email Pap/hpv USPSTF recommends against screening for cervical cancer in women older than 65yo, those who've had a hysterecto my for non-cancer indication s, & who have had adequate prior screening & are not otherwise at high risk for cervical cancer. STD Screen declinedGe netic Screen discussedC olon Screen UTD PCPDexa Screen orderedRou irish Labs UTD PCPMammo Ordered Screening mammography 24 [id number] Z12.31 Postmenopa usal osteopenia [id number] M85.80 Vaginitis [id number] N76.0 Use prn for groin heat rash/yeast prevention Health Concerns Section Related Observation LastModified by Organization Detai ls LastModified Time None Recorded Concern Status LastModified by Organization Details LastModified Time None Recorded Advance Directives Directive Y: Payers Encounter Date Sequence Insurance Name Policy Number Policy Galvan Covered Member ID Galvan Member ID Guarantor Name 08/11/2020 1 [facility] [id number] Julio Crane Prado [id number] Apurva Castro Prado 09/09/2021 1 [facility] (MEDICARE REPLACEMENT/A DVANTAGE - PPO) [id number] Apurva Harding Prado [id number] Apurva Castro Prado 02/14/2023 1 [employer] [id number] Apurva Prado [id number] Apurva L Prado 03/26/2024 1 [employer] [id number] Apurva Prado [id number] Apurva Castro Prado Notes Date Note Type Note Provider Name and Address Organization Details Recorded Time 08/11/2020 text/html Annual GYNReport ed bypatient.Menstrua l cycle:Normal menses Urinary symptoms:No hematuria; No incontinence Vulva:No genital lesion Vagina:Normal vaginal discharge Breast:No breast pain; No breast lump; No nipple discharge Sexual complaints:No sexual complaints; No pain during intercourse; Normal libido Menopausal Symptoms:No menopausal symptoms; Normal vaginal lubrication Psychological symptoms:No depression; No anxiety; No PMDD Preventive measures:Encourage self breast examination; Encourage regular exercise; Encourage no tobacco use; Encourage regular mammograms starting age 40; Needs to schedule mammogram; Up to date on colonoscopy screening Juliana Keyes, [facility] [address], [place], [address], [facility] 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 Post-MenopausalRep orted bypatient.Menopaus al Symptoms:no menopausal symptoms; normal vaginal lubrication Vaginal Bleeding:history of menopause having occurred; no history of post menopausal bleeding Urinary Symptoms:no hematuria; no incontinence; no nocturia; no urinary frequency Vulva:no genital lesion; no vulvar atrophy Vagina:normal vaginal discharge; no vaginal atrophy Breast:no breast lump; no nipple discharge; no breast pain Sexual Complaints:no sexual complaints Psychological Symptoms:no depression; no anxiety Preventive Measures:encourage regular mammograms starting age 40; encourage self breast examination; encourage regular exercise; encourage no tobacco use; needs to schedule mammogram; history of recent colonoscopy; needs to schedule bone density Juliana Keyes [facility] [address], [place], [address], [facility] 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 Post-MenopausalRep orted bypatient.Menopaus al Symptoms:no menopausal symptoms; normal vaginal lubrication Vaginal Bleeding:history of menopause having occurred; no history of post menopausal bleeding Urinary Symptoms:no hematuria; no incontinence; no nocturia; no urinary frequency Vulva:no genital lesion; no vulvar atrophy Vagina:normal vaginal discharge; no vaginal atrophy Breast:no breast lump; no nipple discharge; no breast pain Sexual Complaints:no sexual complaints Psychological Symptoms:no depression; no anxiety Preventive Measures:encourage regular mammograms starting age 40; encourage self breast examination; encourage regular exercise; encourage no tobacco use; needs to schedule mammogram; history of recent colonoscopy Juliana Keyes [facility] [address], [place], [address], [facility] 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 Post-MenopausalRep orted bypatient.Menopaus al Symptoms:no menopausal symptoms; normal vaginal lubrication Vaginal Bleeding:history of menopause having occurred; no history of post menopausal bleeding Urinary Symptoms:no hematuria; no incontinence; no nocturia; no urinary frequency Vulva:no genital lesion; no vulvar atrophy Vagina:normal vaginal discharge; no vaginal atrophy Breast:no breast lump; no nipple discharge; no breast pain Sexual Complaints:no sexual complaints Psychological Symptoms:no depression; no anxiety Preventive Measures:encourage regular mammograms starting age 40; encourage self breast examination; encourage regular exercise; encourage no tobacco use; needs to schedule mammogram; history of recent colonoscopy; needs to schedule bone density Juliana Keyes [facility] [address], [place], [address], [facility] 03/26/2024 15:34:23 OBGyn Episode Ob Episode Information Episode Created Date Number of Fetuses Patient Bloodtype Patient rh Status Prepregnancy Weight lbs Domestic Partner Domestic Partner Phone Father Name Loss Control Engineer Status 08/10/20 20 1 CLOSED Fetus Data First Name Last Name Admitted to NICU Weight (g) Sex Living Outcome Pediatric Complications Fetus ID Race Codes Race Delivery Type , Spontane ous [id number] Juice Calculation Initial Juice Date Initial Exam Date Initial Exam Provider Initial Ultrasound Date Last Menstrual Period Date Ultra Sound Weeks Gestation 0 Eighteen To Twenty Week Juice Update Ultra Sound Date Fundal Height At Umbil Quickening Date Ultra Sound Latest Weeks Gestation Final Juice Confirmed By Final Juice Confirmed Date Final Juice Date Ultra Sound Latest Days Gestation 0 0 Menstrual History Last Menstrual Date Menses Monthly On Bcp Conception Prior Menses Frequency Hcg Plus Date Menarche Onset Age Delivery Information Delivery Date Delivery Type Labor Anesthesia Weeks Gestation Incision Type Labor Labor Length Hrs Delivered By Post Complications Tubal Sterilization Discharge Date Comments 3 Discharge Information Feeding Method Contraceptive Method Maternal HG B and HCT Levels
== END 2025-04-11 13:50 | disposition home or self-care (01) ==
LOC: ANHIMG 13:51
PROVIDERS: PCP Family Medicine; Visit Provider Nurse Practitioner Obstetrics & Gynecology
DX: Z12.31 Encounter for screening mammogram for malignant neoplasm of breast (principal); M85.89 Other specified disorders of bone density and structure, multiple sites
CPT/HCPCS: 77063; 77067; 77080

== ENCOUNTER 2025-04-16 00:35 | Day surgery (SDC) | payer MEDICARE, SELFPAY ==
[2025-04-08 08:54] VITALS: BMI 42.5
--- OUTSIDE RECORDS SUMMARY | 2025-04-16 00:38 | XMS_ITS | Data Portability ---
Author Organization [facility] [place] Address [address] [place] [address] [place] [address] Care Team Providers Care Acid Dumper Name Role Phone JAXSON JACKSON Primary Care [...] recorded. Imaging MAMMO, screening, bilateral [address] [facility], [address], [address], [place], [address], 08:55:10 DEXA, axial skeleton + vertebral fracture assessment [address] [facility], [address], [place], [address], 4 08:55:10 MAMMO, screening, bilateral [address] [facility], [address], [place], [address], 3 15:55:03 DEXA, axial skeleton + vertebral fracture assessment 2020 021 [facility], [address], [place], [address], 2 11:46:10 Medication Orders nystatin-tr iamcinolone 100,000 unit/gram-0 .1 % topical ointment 2023 024 [id number], [address] [place], [address], 4 15:33:47 Patient TargetsNo targets recorded. Patient [...] bilat eral No observ ation record ed. [facility] [address], [place], [address], 06/24/2022 12:19:45 06/23/20 22 DEXA, axial skele ton + verte bral fract ure asses sment No observ ation record ed. [facility] [address], [place], [address], 06/28/2022 14:07:37 05/04/11/2025 imagi ng/di agnos tic resul t No observ ation record ed. [facility] [address], [place], [address], 04/12/2025 12:06:33 Result Notes None recorded. Problems Name Problem SNOMED Code Status Onset Date Resolution Date Notes Provider Name and Address Organization Details Recorded Time Speciali zed medical examinat ion Completed 201309/07/2021 Gynecolog ical Examinati on;Record ed Elsewhere : No Locati on: [facility] So urce: EHR Chron ic: N Practic e ID: 0001 Bill able Time: 08:30:00 AM Dianna Pena [facility] 13:40:[address] Concept Completed 201409/07/2021 Encntr for general adult medical exam w/o abnormal findings; Recorded Elsewhere : No Locati on: [facility] So urce: EHR Chron ic: N Practic e ID: 0001 Bill able Time: 11:30:00 AM Dianna Pena [facility] 13:40:02 Evaluati on finding Completed 201609/07/2021 Hematuria , unspecifi ed;Record ed Elsewhere : No Locati on: [facility] So urce: EHR Chron ic: N Practic e ID: 0001 Bill able Time: 04:30:00 PM Dianna Pena [facility] 13:39:51 Microsco pic hematuri a [id number] Completed 201009/07/2021 HEMATURIA MICROSCOP IC;Practi ce ID: [id number] [facility] 13:39:54 Screenin g for malignan t neoplasm of cervix Completed 201009/07/2021 Pap Smear;Pra ctice ID: [address] [facility] 13:39:57 Screenin g for malignan t neoplasm of colon Completed 201009/07/2021 Special screening for malignant neoplasms , colon;Pra ctice ID: 0001 Dianna walker [facility] 13:39:58 Obesity [id number] Completed 201109/07/2021 Obesity, unspecifi ed;Practi ce ID: 0001 Dianna walker [facility] 13:39:55 Adult health examinat ion Completed 201109/07/2021 Routine general medical examinati on at a health care facility; Practice ID: 0001 Dianna Pena [facility] 13:39:46 Screenin g for malignan t neoplasm of rectum Completed 201109/07/2021 Screening for malignant neoplasms of the rectum;Pr actice ID: 0001 Dianna Pena [facility] 13:40:00 Bone density finding [id number] Completed 201709/07/2021 Oth disrd of bone density and structure , multiple sites;Rec orded Elsewhere : No Locati on: [facility] So urce: EHR Chron ic: N Practic e ID: 0001 Bill able Time: 11:13:36 AM Dianna walker [facility] 13:39:49 Body mass index 30+ - obesity [id number] Completed 201409/07/2021 Body mass index (BMI) 38.0-38.9 , adult;Rec orded Elsewhere : No Locati on: [facility] So urce: EHR Chron ic: N Practic e ID: 0001 Bill able Time: 11:30:00 AM Dianna walker [facility] 13:39:[address] Concept Completed 201809/07/2021 Encntr for clean up person exam (general) (routine) w/o abn findings; Recorded Elsewhere : No Locati on: [facility] So urce: EHR Chron ic: N Practic e ID: 0001 Bill able Time: 01:30:00 PM Dianna [facility] 13:40:03 Finding of body mass index [id number] Completed 201709/07/2021 Body mass index (BMI) 40.0-44.9 , adult;Rec orded Elsewhere : No Locati on: [facility] So urce: EHR Chron ic: N Practic e ID: 0001 Bill able Time: 11:00:00 AM Dianna [facility] 13:39:52 Problem Notes None recorded. Procedures Surgical History Date Name Laterality Status Provider Name and Address Organization Details Recorded Time 11/13/19 23 Date of Last Mammogram completed Nina Mccarty [facility] 03/26/2024 15:01:28 06/23/20 22 Most Recent Bone Density completed [facility] 02/14/2023 16:13:59 08/22/20 19 Date of Last Colonoscopy completed [facility] 09/09/2021 15:01:42 07/22/20 19 completed [facility] 09/09/2021 15:01:42 05/01/20 19 Date of Last Pap Smear completed [facility] 02/14/2023 16:13:38 06/14/20 18 completed [facility] 09/09/2021 15:04:18 11/13/19 09 excision of varicose vein completed [facility] 09/07/2021 13:46:23 11/13/19 06 Colonoscopy completed [facility] 09/07/2021 13:45:47 11/13/19 04 Total Hysterectomy completed [facility] 09/07/2021 13:46:46 11/13/18 97 Myomectomy completed [facility] 09/07/2021 13:46:08 Myomectomy completed [facility] 09/09/2021 15:01:49 Colonoscopy completed Juliana Keyes, [facility]- [address], [place], [address], [facility] 02/14/2023 16:17:53 Total Hysterectomy completed [facility] 09/09/2021 15:01:49 Imaging Results None recorded. Procedure Notes None recorded. Medical Equipment None Reported. Allergies Allergen ID Allergen Name Allergen Category Reaction Reaction Severity Criticality Documentation Date Start Date Code Code System Note Provider Name and Address Organization Details Recorded Time 2186 doxycycli ne Not available Not available Not available Not available 08/10/2020 3640 RxNorm Helena Hagen aaron, [facility] 0 17:36:49 2187 erythromy panda medicatio n Not available Not available Not available 08/10/2020 4053 [facility] 17:36:55 2188 Product containin g penicilli n (product) medicatio n Not available Not available Not available 08/10/2020 25947 8001 SNOMED Helena Hagen aaron, [facility] 0 17:37:04 Medications Name Sig Start Date Stop Date Status Note LastModified by Organization Details LastModified Time Vitamin C 500 mg tablet 09/09 completed Prescrib ed Elsewher e: Yes Loca tion: [facility] Enio odify By: jacobo friasunttish DateTime : 04/19/20 18 11:00:00 AM Not Available Not Available Not Available vitamin E 100 unit capsule 2017 active Prescrib ed Elsewher e: Yes Loca tion: [facility] En[facility] odify By: jacobo conklin DateTime : 04/19/20 18 11:00:00 AM Not Available Not Available Not Available Flonase 50 mcg/actua tion nasal spray,janny pension spray 1 spray by intranas al route every day in each nostril 2011 active Prescrib ed Elsewher e: No Locat ion: [facility] odify By: chan wade DateTime : 07/10/20 12 05:21:41 AM Not Available Not Available Not Available Zyrtec 10 mg tablet take 1 tablet by oral route every day 07/22 completed Prescrib ed Elsewher e: Yes Loca tion: [facility] odify By: ze conklin DateTime : 07/10/20 [...] Elsewher e: Yes Loca tion: [facility] odify By: chan wade DateTime : 07/10/20 12 05:21:41 AM Not Available Not Available Not Available lutein 6 mg capsule 03/26 completed Prescrib ed Elsewher e: Yes Loca tion: [facility] odify By: jacobo conklin DateTime : 05/01/20 [...] Elsewher e: Yes Loca tion: [facility] odify By: jacobo conklin DateTime : 08/07/20 14 08:30:00 AM Not Available Not Available Not Available grape seed extract 50 mg capsule 2017 active Prescrib ed Elsewher e: Yes Loca tion: [facility] odify By: jacobo conklin DateTime : 04/19/20 18 11:00:00 AM Not Available Not Available Not Available Acidophil us capsule 2016 active Prescrib ed Elsewher e: Yes Loca tion: [facility] odify By: jacobo friasunter DateTime : 01/10/20 17 04:30:00 PM Not Available Not Available Not Available Calcium 500 + D 500 mg-5 mcg (200 unit) tablet 2016 active Prescrib ed Elsewher e: Yes Loca tion: [facility] odify By: jacobo friasunttish DateTime : 01/10/20 17 04:30:00 PM Not Available Not Available Not Available nitrofura ntoin monohydra te/macroc rystals 100 mg capsule 09/09 completed Not Available Not Available Not Available Clarinex- D 24 HOUR 5 mg-240 mg tablet,ex tended release take 1 tablet by oral route every day 08/07 completed Prescrib ed Elsewher e: No Locat ion: [facility] odify By: jacobo friasunttish DateTime : 07/22/20 13 08:30:00 AM Not Available Not Available Not Available Vitamin C 09/09 completed Not Available Not Available Not Available vitamin E 09/09 completed Not Available Not Available Not Available Acidophil us 09/09 completed Not Available Not Available Not Available Deerfield-3 09/09 completed Not Available Not Available Not [...] Available glucosami ne-chondr oitin 900 mg tablet 06/07/ 2018 active Prescrib ed Elsewher e: Yes Loca tion: [facility] odify By: jacobo friasunter DateTime : 04/19/20 18 11:00:00 AM Not Available Not Available Not Available Faiza Allergy 60 mg tablet take 1 tablet by oral route 2 times every day 2016 active Prescrib ed Elsewher e: Yes Loca tion: [facility] odify By: jacobo friasunttish DateTime : 01/10/20 17 04:30:00 PM Not [...] Prescrib ed Elsewher e: Yes Loca [facility]ion: [facility] odify By: jaocbo friasunter DateTime : 01/10/20 17 04:30:00 PM Not Available Not Available Not Available Multi Vitamin 09/09 completed Not Available Not Available Not Available Flonase Allergy Relief 09/09 completed Not Available Not Available Not Available Deerfield-3 350 mg-235 mg-90 mg-597 mg capsule,d elayed release 2016 active Prescrib ed Elsewher e: Yes Loca tion: [facility] odify By: jacobo conklin DateTime : 01/10/20 17 04:30:00 PM Not Available Not Available Not Available Flowflex COVID-19 Antigen Home Test kit USE DIRECTED 03/26 completed Not Available Not Available Not Available Vitals Date Recorded Body weight Systolic blood pressure Diastolic blood pressure Provider Name and Address Organization Details Last Updated DateTime 02/14/2023 285575.66 g 135 mm[Hg] 80 mm[Hg] Dianna Gill [facility] 02/14/2023 16:12:08 Date Recorded Body height Body mass index (BMI) Body weight Systolic blood pressure Diastolic blood pressure Provider Name and Address Organization Details Last Updated DateTime 03/26/2024 163.2 cm 46.7 kg/m2 789709.3 1 g 132 mm[Hg] 76 mm[Hg] Nina Mccarty [facility] 4 14:59:52 Date Recorded Body height Body mass index (BMI) Body weight Systolic blood pressure Diastolic blood pressure Provider Name and Address Organization Details Last Updated DateTime 08/11/2020 165.1 cm 45.3 kg/m2 973513.1 2 g 156 mm[Hg] 95 mm[Hg] Helena Hagen [facility] 0 10:44:30 Date Recorded Systolic blood pressure Diastolic blood pressure Provider Name and Address Organization Details Last Updated DateTime 09/09/2021 132 mm[Hg] 81 mm[Hg] Juliana Keyes, [facility]- [address], [place], [address], [facility] 09/09/2021 15:09:43 Date Recorded Body height Body mass index (BMI) Body weight Provider Name and Address Organization Details Last Updated DateTime 09/09/2021 163.2 cm 46.5 kg/m2 505484.72 g Dianna Pena [facility] 09/09/2021 15:01:08 Social History Question Answer Notes LastModified by Organizat ion Details LastModified Time Tobacco Smoking Status Never Smoker Cecily walker, [facility] 02/14/2023 16:05:54 Do You Have An [...] Or The Highest Degree You Have Received? 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 Occasional Information not available 09/07/2021 Mental Status Question Answer Note LastModified by Organization D etails LastModified Time Do you feel stressed (tense, restless, nervous, or anxious, or unable to sleep at night)? [id number] Information not available 09/09/2021 Family History Relationship [...] 17:39:59 Mother Carcinoma in situ of liver Not available 2023 14:49:27 Maternal Grandmother Hypertensive disorder [email or web address] Not available 2019 17:39:59 Maternal Grandmother Carcinoma in situ of uterus [email or web address] Not available 2023 14:49:27 Maternal Grandmother Carcinoma in situ of liver [email or web address] Not available 2023 14:49:27 Medical History Condition [...] SNOMED-CT Code Diagnosis ICD10 Code Diagnosis Note [id number] [facility] [address] [address] 08/11/2020 10:32:19 08/11/2020 11:33:23 Gynecologic examination 05844184 Z01.419 Take Calcium with Vitamin D 12-1500mg daily. Do monthly self breast exams. It is advised to get annual flu shot in the fall and she could obtain at [facility] or [facility] clinic. If you haven't received the [...] questions call or respond to this email [facility] for non-cancer indication s. Will contact PCP regarding BP. Same partner x >20[place] [id number] Juliana Keyes [facility] [address],[place] [address] 09/09/2021 14:30:54 09/09/2021 15:29:52 Gynecologic examination 46676208 Z01.419 Take Calcium with Vitamin D 12-1500mg daily. Do monthly self breast exams. It is advised to get annual flu shot in the fall and she could obtain at [facility] or [facility] clinic. If you haven't received the [...] questions call or respond to this email [facility] for non-cancer indication s. Same partner x >20yrs Neg pap hxDeclines std screenColo n-managed by PCPMammo orderedDex a ordered Postmenopa usal osteopenia 279190638 M85.80 [id number] Juliana Keyes [facility] [address],[facility] [place] [address] 02/14/2023 16:05:40 02/14/2023 16:26:39 Gynecologic examination 85173111 Z01.419 Take Calcium with Vitamin D 12-1500mg daily. Do monthly self breast exams. It is advised to get annual flu shot in the fall and she could obtain at [facility] or [facility] clinic. If you haven't received the [...] olon Screen UTD PCPDexa Screen UTD due 4Routin e Labs UTD PCPMammo Ordered Screening mammography 24 945033 Z12.31 [id number] Juliana Keyes [facility] [address] [address] 03/26/2024 14:47:45 03/26/2024 15:36:06 Gynecologic examination 59096388 Z01.419 Take Calcium with Vitamin D 12-1500mg daily. Do monthly self breast exams. It is advised to get annual flu shot in the fall and she could obtain at [facility] or [facility] clinic. If you haven't received the [...] Labs UTD PCPMammo Ordered Screening mammography 24 133176 Z12.31 Postmenopa usal osteopenia 687717618 M85.80 Vaginitis 71540525 N76.0 Use prn for groin heat rash/yeast prevention Health Concerns Section Related Observation LastModified by Organization Detai ls LastModified Time None Recorded Concern Status LastModified by Organization Details LastModified Time None Recorded Advance Directives Directive Y: Payers Encounter Date Sequence Insurance Name Policy Number Policy Galvan Covered Member ID Galvan Member ID Guarantor Name 08/11/2020 1 [facility] [id number] Julio Eve [id number] Apurva Prado 09/09/2021 1 [facility] (MEDICARE REPLACEMENT/A DVANTAGE - PPO) [id number] Apurva Prado [id number] Apurva Prado 02/14/2023 1 [id number] Apurva Prado [id number] Apurva Prado 03/26/2024 1 [facility] [id number] Apurva Prado [id number] Apurva Prado Notes Date Note Type Note Provider [...] Up to date on colonoscopy screening [facility] [address], [place], [address], [facility] 08/11/2020 11:12:10 09/09/2021 text/html Annual Log Data Technician Post-MenopausalRep orted bypatient.Menopaus al Symptoms:no menopausal symptoms; [...] needs to schedule bone density [facility] [address], [place], [address], [facility] 09/09/2021 15:20:19 02/14/2023 text/html Annual Log Data Technician Post-MenopausalRep orted bypatient.Menopaus al Symptoms:no menopausal symptoms; [...] mammogram; history of recent colonoscopy [facility] [address], [place], [address], [facility] 02/14/2023 16:25:59 03/26/2024 text/html Annual Log Data Technician Post-MenopausalRep orted bypatient.Menopaus al Symptoms:no menopausal symptoms; [...] colonoscopy; needs to schedule bone density Juliana Keyes, [facility]- [address], [place], [address], [facility] 03/26/2024 15:34:23 OBGyn Episode Ob Episode Information Episode Created Date Number of Fetuses Patient Bloodtype Patient rh Status Prepregnancy Weight lbs Domestic Partner Domestic Partner Phone Father Name Director Of Testing Status 08/10/20 20 1 CLOSED Fetus Data [...]
[2025-04-16 10:19] VITALS: BP 137/73; PULSE 72; RESP 18; TEMP 36.5; O2SAT 100
--- NOTE | 2025-04-16 10:23 | WPDANESEPPF ---
Anes - Initial Pre Proc Eval Procedure: Operation Date: 04/16/25 12:30 Proposed Procedures p Colonoscopy - Reynaldo Hyman MD Date/Time: 04/16/25 10:23 Surgeon: Reynaldo Hyman MD Pre Op Diagnosis: Personal history of colon polyps Patient Data Age: 69 Gender: F Height: 1.65 m Weight: 118.6 kg Last Vital Signs Temp 97.7 F 04/16/25 10:19 Pulse 72 04/16/25 10:19 Resp 18 04/16/25 10:19 BP 137/73 04/16/25 10:19 Pulse Ox 100 04/16/25 10:19 O2 Del Method Room Air 04/16/25 10:19 Allergies Allergy/AdvReac Type Severity Reaction Status Date / Time doxycycline Allergy Intermediate Diarrhea Verified 04/16/25 10:16 erythromycin base Allergy Unknown Unknown Verified 04/16/25 10:16 indomethacin Allergy Unknown nausea Verified 04/16/25 10:16 Penicillins Allergy Unknown Unknown Verified 04/16/25 10:16 Home Medications ?Medication ?Instructions ?Recorded ?Confirmed ?Type Lactobacillus acidophilus 100 100 mg PO DAILY 05/25/20 04/16/25 History million cell capsule calcium 500 mg-vitamin D3 500 3 tablet PO DAILY 05/25/20 04/16/25 History unit-vitamin K 40 mcg chewable tablet calcium polycarbophil 625 mg 625 mg PO DAILY 05/25/20 04/16/25 History tablet (FiberCon) fexofenadine 180 mg tablet 180 mg PO DAILY 05/25/20 04/16/25 History (Faiza Allergy) fluticasone propionate 50 2 spray intranasal DAILY 05/25/20 04/16/25 History mcg/actuation nasal spray,suspension glucosamine-chondroitin 1,500 mg See Rx Instructions PO .COMPLEX 05/25/20 04/08/25 History -1,200 mg/30 mL oral liquid lutein 6 mg capsule 12 mg PO DAILY 05/25/20 04/16/25 History vitamin E (dl, acetate) 180 mg 400 unit PO DAILY 11/24/20 04/16/25 History (400 unit) capsule vitamin B complex 1 tablet PO DAILY 09/06/22 04/16/25 History Sling #1 ea 07/31/24 02/19/25 Rx acetaminophen 500 mg tablet 500 mg PO Q6H PRN pain 09/11/24 04/08/25 History (Tylenol Extra Strength) hydrochlorothiazide 12.5 mg tablet See Rx Instructions .Route 01/20/25 04/16/25 Rx .COMPLEX #90 tabs lisinopril 10 mg tablet See Rx Instructions .Route 01/20/25 04/16/25 Rx .COMPLEX #90 tabs rosuvastatin 10 mg tablet 10 mg PO DAILY #90 tabs 04/01/25 04/16/25 Rx omega-3 fatty acids 500 mg PO DAILY 04/08/25 04/16/25 History Patient hx anesthesia problems: none Family hx anesthesia problems: none Results Review: All pre-operative results and documents have been reviewed as part of the pre-operative evaluation. [facility] Past Medical History Medical History Hepatitis C antibody test negative (06/23/21) Hyperglycemia Asthma Laceration without foreign body of left hand, initial encounter Stress reaction, chronic Surgical History Surgical History H/O: myomectomy (~1988) H/O: hysterectomy (~2003) Family History Family History Other Diabetes mellitus Family history of arthritis Family history of cardiovascular disease Hypertension Social History Social History Social History: Caffeine- 1-2 caffeinated beverages daily Smoking status: Never smoker Second hand tobacco smoke exposure: Yes (when growing up father smoked in the house and car) Alcohol intake: current Drinks per week: 1 Alcohol use details: occasionally Substance use: never Substance use type: does not use Do You Feel Safe in your Home?: Yes Lack of Transportation: No Lack of Food: Never True Current Housing: I Have Housing Concerned About Future Housing: No Difficulty Paying Gas/Electric Bills: No Difficulty Paying for Meds: No Currently Unemployed: No Education: Master's Degree or Higher Difficulty w/ Childcare or Family Care: No Living arrangements: with family Spiritual care concerns: No Anes - Eval Final PreProcedure Day of Procedure 04/16/25 10:23 Patient weight: morbidly obese Lungs: normal air movement Airway: Mallampati scale Neurological: alert and oriented Last oral intake: >/= 8 hours ASA classification: III Emergent: no Anesthetic plan: proceed Anesthesia type and monitoring: general GIVS and standard monitoring Results Review: All pre-operative results and documents have been reviewed as part of the pre-operative evaluation. HTN, hyperlipidemia, BMI 43. Last year had a fall and broke her shoulder (nonsurgical) so overall less active but no limitations w walking 1-2 fos, no cp or sob. Informed Consent: The patient's anesthetic plan and its attendant risks and benefits were discussed with the patient/family/POA. Questions were solicited and answers provided to the satisfaction of the patient/family/POA.
[2025-04-16] MEDS: LACTATED RINGERS 1,000 ML 150 ML IV CONT (10:29)
--- NOTE | 2025-04-16 10:59 | P.HP_ITS ---
H&P: HPI History of Present Illness Date/Time: 04/16/25 10:59 Chief Complaint: History of colon polyps Narrative: The patient has a history of colonic polyps, the last colonoscopy was 5 years ago. Review of Systems Review of Systems: All systems reviewed & are unremarkable except as noted in HPI and below PMFSH Past Medical History Medical History Hepatitis C antibody test negative (06/23/21) Hyperglycemia Asthma Laceration without foreign body of left hand, initial encounter Stress reaction, chronic Surgical History Surgical History H/O: myomectomy (~1988) H/O: hysterectomy (~2003) Family History Family History Other Diabetes mellitus Family history of arthritis Family history of cardiovascular disease Hypertension Social History Social History Social History: Caffeine- 1-2 caffeinated beverages daily Smoking status: Never smoker Second hand tobacco smoke exposure: Yes (when growing up father smoked in the house and car) Alcohol intake: current Drinks per week: 1 Alcohol use details: occasionally Substance use: never Substance use type: does not use Do You Feel Safe in your Home?: Yes Lack of Transportation: No Lack of Food: Never True Current Housing: I Have Housing Concerned About Future Housing: No Difficulty Paying Gas/Electric Bills: No Difficulty Paying for Meds: No Currently Unemployed: No Education: Master's Degree or Higher Difficulty w/ Childcare or Family Care: No Living arrangements: with family Spiritual care concerns: No Meds Home Medications and Allergies Home Medications ?Medication ?Instructions ?Recorded ?Confirmed ?Type Lactobacillus acidophilus 100 100 mg PO DAILY 05/25/20 04/16/25 History million cell capsule calcium 500 mg-vitamin D3 500 3 tablet PO DAILY 05/25/20 04/16/25 History unit-vitamin K 40 mcg chewable tablet calcium polycarbophil 625 mg 625 mg PO DAILY 05/25/20 04/16/25 History tablet (F[employer]) fexofenadine 180 mg tablet 180 mg PO DAILY 05/25/20 04/16/25 History ([facility] Allergy) fluticasone propionate 50 2 spray intranasal DAILY 05/25/20 04/16/25 History mcg/actuation nasal spray,suspension glucosamine-chondroitin 1,500 mg See Rx Instructions PO .COMPLEX 05/25/20 0 04/08/25 History -1,200 mg/30 mL oral liquid lutein 6 mg capsule 12 mg PO DAILY 05/25/20 04/16/25 History vitamin E (dl, acetate) 180 mg 400 unit PO DAILY 11/24/20 04/16/25 History (400 unit) capsule vitamin B complex 1 tablet PO DAILY 09/06/22 04/16/25 History Sling #1 ea 07/31/24 02/19/25 Rx acetaminophen 500 mg tablet 500 mg PO Q6H PRN pain 09/11/24 04/08/25 History (Tylenol Extra Strength) hydrochlorothiazide 12.5 mg tablet See Rx Instructions .Route 01/20/25 04/16/25 Rx .COMPLEX #90 tabs lisinopril 10 mg tablet See Rx Instructions .Route 01/20/25 04/16/25 Rx .COMPLEX #90 tabs rosuvastatin 10 mg tablet 10 mg PO DAILY #90 tabs 04/01/25 04/16/25 Rx omega-3 fatty acids 500 mg PO DAILY 04/08/25 04/16/25 History Allergies Allergy/AdvReac Type Severity Reaction Status Date / Time doxycycline Allergy Intermediate Diarrhea Verified 04/16/25 10:16 erythromycin base Allergy Unknown Unknown Verified 04/16/25 10:16 indomethacin Allergy Unknown nausea Verified 04/16/25 10:16 Penicillins Allergy Unknown Unknown Verified 04/16/25 10:16 Vital Signs Vital Signs - 24 hr 04/16/25 10:19 Temperature 97.7 F Pulse Rate 72 Respiratory Rate 18 Blood Pressure 137/73 Pulse Oximetry 100 Oxygen Delivery Room Air Exam Const: General: cooperative and healthy appearing Resp: Effort & Inspection: normal respiratory effort and able to speak in complete sentences Auscultation: clear to auscultation bilaterally Cardio: Rate: regular rate Rhythm: regular rhythm GI: Inspection: normal to inspection GI Palp: No No hepatosplenomegaly present Auscultation: normal bowel sounds Rectal Exam: deferred Skin: General skin exam: normal color Psych: Appearance: grossly normal Mental Status: mental status grossly normal Assessment and Plan Assessment and plan (1) History of colon polyps: Code(s): Z86.010 - Personal history of colon polyps Status: Acute Assessment and Plan: The patient is deemed a good candidate for the procedure. Consent signed. Will proceed.
[2025-04-16 11:27] VITALS: BP 109/53; PULSE 75; RESP 15; O2SAT 100
[2025-04-16 11:37] VITALS: BP 123/69; PULSE 73; RESP 16; O2SAT 100
[2025-04-16 11:47] VITALS: BP 128/60; PULSE 71; RESP 14; O2SAT 100
== END 2025-04-16 11:55 | disposition home or self-care (01) ==
PROVIDERS: PCP Family Medicine; Referring Provider Family Medicine; Visit Provider Internal Medicine Gastroenterology
PROC: 0DJD8ZZ Inspection of Lower Intestinal Tract, Via Natural or Artificial Opening Endoscopic (ICD-10-PCS; CPT 45378; principal; 2025-04-16 12:30)
DX: Z12.11 Encounter for screening for malignant neoplasm of colon (principal); K57.30 Diverticulosis of large intestine without perforation or abscess without bleeding; I10 Essential (primary) hypertension; E78.5 Hyperlipidemia, unspecified; R73.9 Hyperglycemia, unspecified; J45.909 Unspecified asthma, uncomplicated; F43.9 Reaction to severe stress, unspecified; E66.01 Morbid (severe) obesity due to excess calories; Z68.41 Body mass index [BMI] 40.0-44.9, adult; Z98.890 Other specified postprocedural states; Z86.0100 Personal history of colon polyps, unspecified; Z82.49 Family history of ischemic heart disease and other diseases of the circulatory system
CPT/HCPCS: G0105; J2003; J2704; J7120